=== PATIENT | female | born 1965 | race Caucasian/White ===

== ENCOUNTER 2018-04-29 19:04 | Emergency (ER) | payer OTHER ==
[~2018-04-29] VITALS: Ht 160 cm; Wt 103.9 kg
[2018-04-29 19:57] VITALS: Ht 160 cm; Wt 103.9 kg
[2018-04-29 22:15] LABS: BASOPHIL % 0.7 % (0-2); PLATELET COUNT 240 x10^3mcL (130-400); RED CELL DISTRIBUTION WIDTH 13.4 % (11.5-14.5)
[2018-04-29 22:27] LABS: CALCIUM 8.8 mg/dL (8.5-10.1); CARBON DIOXIDE 31.1 mmol/L (21-32); CHLORIDE SERUM 99 mmol/L (98-107); CREATININE SERUM 0.9 mg/dL (0.6-1.0); GFR1 > 60 mL/min; GLUCOSE SERUM 159 mg/dL (74-106); POTASSIUM SERUM 3.2 mmol/L (3.5-5.1); SODIUM SERUM 133 mmol/L (136-145)
[2018-04-29 22:32] LABS: ALBUMIN 3.6 g/dL (3.4-5.0); ALKALINE PHOSPHATASE 96 U/L (46-116); ALT/SGPT 21 U/L (14-59); AST/SGOT 18 U/L (15-37); BILIRUBIN TOTAL 0.65 mg/dL (0.20-1.00); TOTAL PROTEIN, SERUM 7.9 g/dL (6.4-8.2)
[2018-04-29 23:46] VITALS: BP 187/97
== END 2018-04-29 23:46 | disposition home or self-care (01) ==
LOC: ED 19:04
PROVIDERS: Emergency Medicine
DX: E87.6 Hypokalemia (principal); R42 Dizziness and giddiness; F41.9 Anxiety disorder, unspecified; I10 Essential (primary) hypertension; E11.9 Type 2 diabetes mellitus without complications; Z88.0 Allergy status to penicillin; Z88.6 Allergy status to analgesic agent
CPT/HCPCS: 36415

== ENCOUNTER 2018-05-11 19:08 | Emergency (ER) | payer OTHER ==
[~2018-05-11] VITALS: Ht 160 cm; Wt 102.1 kg
[2018-05-11 19:10] VITALS: Ht 160 cm; Wt 102.1 kg
[2018-05-11 19:38] LABS: BASOPHIL % 0.9 % (0-2); PLATELET COUNT 236 x10^3mcL (130-400); RED CELL DISTRIBUTION WIDTH 13.7 % (11.5-14.5)
[2018-05-11 19:47] LABS: CALCIUM 9.2 mg/dL (8.5-10.1); CARBON DIOXIDE 28.7 mmol/L (21-32); CHLORIDE SERUM 102 mmol/L (98-107); CREATININE SERUM 0.9 mg/dL (0.6-1.0); GFR1 > 60 mL/min; GLUCOSE SERUM 217 mg/dL (74-106); POTASSIUM SERUM 3.8 mmol/L (3.5-5.1); SODIUM SERUM 138 mmol/L (136-145)
[2018-05-11 19:51] LABS: ALBUMIN 3.6 g/dL (3.4-5.0); ALKALINE PHOSPHATASE 100 U/L (46-116); ALT/SGPT 19 U/L (14-59); AST/SGOT 15 U/L (15-37); BILIRUBIN TOTAL 0.4 mg/dL (0.20-1.00); TOTAL PROTEIN, SERUM 7.8 g/dL (6.4-8.2)
[2018-05-11 21:17] VITALS: BP 174/96
== END 2018-05-11 21:17 | disposition home or self-care (01) ==
LOC: ED 19:08
PROVIDERS: Emergency Medicine
DX: F41.9 Anxiety disorder, unspecified (principal); I10 Essential (primary) hypertension; E11.9 Type 2 diabetes mellitus without complications; Z88.0 Allergy status to penicillin; Z88.6 Allergy status to analgesic agent
CPT/HCPCS: 36415; Q0092

== ENCOUNTER 2018-05-13 14:14 | Emergency (ER) | payer OTHER ==
[~2018-05-13] VITALS: Ht 172.7 cm; Wt 103.4 kg
[2018-05-13 14:24] VITALS: Ht 172.7 cm; Wt 103.4 kg
[2018-05-13 16:27] VITALS: BP 177/95
== END 2018-05-13 17:30 | disposition home or self-care (01) ==
LOC: ED 14:14
DX: F41.9 Anxiety disorder, unspecified (principal); R06.4 Hyperventilation; I10 Essential (primary) hypertension; E11.9 Type 2 diabetes mellitus without complications; Z88.0 Allergy status to penicillin; Z88.6 Allergy status to analgesic agent; Z98.890 Other specified postprocedural states
CPT/HCPCS: J2060

== ENCOUNTER 2018-07-28 17:00 | Observation (INO) | payer OTHER | END 2018-07-29 14:42 | disposition home or self-care (01) | LOC: ED 17:00 → DU 19:01 → ED 17:00 → DU 19:01 → ED 17:00 → DU 19:01 → ED 17:00 → DU 19:01 → ED 17:00 → DU 19:01 → ED 17:00 → DU 19:01 ==

== ENCOUNTER 2018-12-04 11:35 | Emergency (ER) | payer OTHER ==
[~2018-12-04] VITALS: Ht 162.6 cm; Wt 107.0 kg
[~2018-12-04 11:35] MED LIST: ATENOLOL1 POW PO; FENOFIBRATE54 M1; GLIPIZIDE2.5 M1 PO; LOSARTAN POTASS25 M1 PO; METFORMIN HYDR500 M1 PO; PRILOSEC2.5 MG/Pa1
[2018-12-04 12:00] VITALS: BP 166/83; Ht 162.6 cm; Wt 107.0 kg
== END 2018-12-04 14:01 | disposition home or self-care (01) ==
LOC: ED 11:35
DX: S16.1XXA Strain of muscle, fascia and tendon at neck level, initial encounter (principal); Z88.0 Allergy status to penicillin; Z88.6 Allergy status to analgesic agent; Z88.8 Allergy status to other drugs, medicaments and biological substances; X58.XXXA Exposure to other specified factors, initial encounter; Y93.89 Activity, other specified; Y92.89 Other specified places as the place of occurrence of the external cause; Y99.8 Other external cause status
CPT/HCPCS: 20552; J2001

== ENCOUNTER 2018-12-06 15:36 | Emergency (ER) | payer OTHER ==
[~2018-12-06] VITALS: Ht 160 cm; Wt 105.2 kg
[2018-12-06 18:04] VITALS: BP 168/90
== END 2018-12-06 18:04 | disposition home or self-care (01) ==
LOC: ED 15:36
DX: S16.1XXA Strain of muscle, fascia and tendon at neck level, initial encounter (principal); I10 Essential (primary) hypertension; E11.9 Type 2 diabetes mellitus without complications; F41.9 Anxiety disorder, unspecified; M79.7 Fibromyalgia; Z88.0 Allergy status to penicillin; Z88.6 Allergy status to analgesic agent; Z88.8 Allergy status to other drugs, medicaments and biological substances; X58.XXXA Exposure to other specified factors, initial encounter; Y93.89 Activity, other specified; Y92.89 Other specified places as the place of occurrence of the external cause; Y99.8 Other external cause status

== ENCOUNTER 2019-02-11 17:27 | Emergency (ER) | payer OTHER ==
[~2019-02-11] VITALS: Ht 160 cm; Wt 105.2 kg
[2019-02-11 17:36] VITALS: Ht 160 cm; Wt 105.2 kg
[2019-02-11 21:49] VITALS: BP 152/68
== END 2019-02-11 21:49 | disposition home or self-care (01) ==
LOC: ED 17:27
DX: N39.0 Urinary tract infection, site not specified (principal); I10 Essential (primary) hypertension; E11.9 Type 2 diabetes mellitus without complications; F41.9 Anxiety disorder, unspecified; M79.7 Fibromyalgia; Z88.0 Allergy status to penicillin; Z88.6 Allergy status to analgesic agent; Z88.8 Allergy status to other drugs, medicaments and biological substances

== ENCOUNTER 2019-03-25 16:08 | Emergency (ER) | payer OTHER ==
[~2019-03-25] VITALS: Ht 160 cm; Wt 105.2 kg
[2019-03-25 16:23] VITALS: Ht 160 cm; Wt 105.2 kg
[2019-03-25 19:11] VITALS: BP 174/88
== END 2019-03-25 19:11 | disposition home or self-care (01) ==
LOC: ED 16:08
DX: H92.01 Otalgia, right ear (principal); I10 Essential (primary) hypertension; E11.9 Type 2 diabetes mellitus without complications; M79.7 Fibromyalgia; Z98.890 Other specified postprocedural states; Z88.0 Allergy status to penicillin; Z88.8 Allergy status to other drugs, medicaments and biological substances

== ENCOUNTER 2019-10-12 15:03 | Emergency (ER) | payer OTHER, SELFPAY ==
[~2019-10-12] VITALS: Ht 160 cm; Wt 99.8 kg
[2019-10-12 15:27] VITALS: Ht 160 cm; Wt 99.8 kg
[2019-10-12 17:10] VITALS: BP 117/55
== END 2019-10-12 17:11 | disposition home or self-care (01) ==
LOC: ED 15:03
DX: U07.1 COVID-19 (principal); B34.9 Viral infection, unspecified
CPT/HCPCS: 82962; U0003-CS

== ENCOUNTER 2020-01-12 15:56 | Emergency (ER) | payer OTHER ==
[~2020-01-12] VITALS: Ht 160 cm; Wt 106.1 kg
[2020-01-12 16:12] VITALS: Ht 160 cm; Wt 106.1 kg
[2020-01-12 16:57] VITALS: BP 162/91
== END 2020-01-12 16:57 | disposition home or self-care (01) ==
LOC: ED 15:56
DX: L30.9 Dermatitis, unspecified (principal); J45.909 Unspecified asthma, uncomplicated; I10 Essential (primary) hypertension; E11.9 Type 2 diabetes mellitus without complications; M79.7 Fibromyalgia; Z88.0 Allergy status to penicillin; Z88.6 Allergy status to analgesic agent

== ENCOUNTER 2020-02-05 12:20 | Emergency (ER) | payer OTHER ==
[~2020-02-05] VITALS: Ht 160 cm; Wt 104.3 kg
[2020-02-05 13:14] VITALS: Ht 160 cm; Wt 104.3 kg
[2020-02-05 15:41] VITALS: BP 188/91
== END 2020-02-05 15:41 | disposition home or self-care (01) ==
LOC: ED 12:20
DX: S83.92XA Sprain of unspecified site of left knee, initial encounter (principal); S93.401A Sprain of unspecified ligament of right ankle, initial encounter; E11.9 Type 2 diabetes mellitus without complications; I10 Essential (primary) hypertension; J45.909 Unspecified asthma, uncomplicated; F41.9 Anxiety disorder, unspecified; E66.9 Obesity, unspecified; Z88.0 Allergy status to penicillin; Z88.6 Allergy status to analgesic agent; Z88.8 Allergy status to other drugs, medicaments and biological substances; Z68.41 Body mass index [BMI] 40.0-44.9, adult; W22.8XXA Striking against or struck by other objects, initial encounter; Y93.89 Activity, other specified; Y92.89 Other specified places as the place of occurrence of the external cause; Y99.8 Other external cause status
CPT/HCPCS: Q0092